=== PATIENT | female | born 1955 | race Caucasian/White ===

== ENCOUNTER 2020-08-04 11:13 | Emergency (ER) | payer OTHER ==
[2020-08-04 13:29] LABS: HEMOGLOBIN 12.8 gm/dl (12.3-15.3); RED BLOOD COUNT 4.23 M/UL (4.00-5.10); WHITE BLOOD COUNT 4.5 K/UL (4.5-11.0)
[2020-08-04 13:58] LABS: BUN/CREATININE RATIO 30 (0-10)
[2020-08-04] MEDS ORDERED: MACROBID 100 M100 M1 PO (14:28)
[2020-08-04] MEDS ORDERED: PREDNISONE 20 M20 MG PO (14:28)
[2020-08-04] MEDS ORDERED: PROAIR HFA8.5 GM INH (14:28)
== END 2020-08-04 15:03 | disposition home or self-care (01) ==
LOC: ER1 11:13
PROVIDERS: Physician Assistant
DX: J40 Bronchitis, not specified as acute or chronic (principal); N39.0 Urinary tract infection, site not specified; I10 Essential (primary) hypertension; I25.2 Old myocardial infarction; Z86.73 Personal history of transient ischemic attack (TIA), and cerebral infarction without residual deficits; Z90.49 Acquired absence of other specified parts of digestive tract; Z90.710 Acquired absence of both cervix and uterus; Z88.0 Allergy status to penicillin; Z88.5 Allergy status to narcotic agent; Z88.6 Allergy status to analgesic agent; Z88.1 Allergy status to other antibiotic agents
CPT/HCPCS: 70450; 71045; 80053; 81001; 82550; 82553; 83690; 83874; 83880; 84484; 85025; 85379; 93005; 94664; 94760; 99285

== ENCOUNTER → 2020-08-12 | Outpatient (CLI) | payer OTHER ==
[~2020-08-12] MED LIST: BACTRIM DS TAB1 EACH PO; MACROBID 100 M100 M1 PO; PREDNISONE 20 M20 MG PO; PROAIR HFA8.5 GM INH; PYRIDIUM200 MG PO
== END ==
LOC: HEART 5 15:27
DX: R00.2 Palpitations (principal)

== ENCOUNTER 2020-11-11 10:21 | Emergency (ER) | payer OTHER ==
[~2020-11-11 10:21] MED LIST changes: -BACTRIM DS TAB1 EACH PO; -PYRIDIUM200 MG PO
[2020-11-11 13:18] LABS: HEMOGLOBIN 12.9 gm/dl (12.3-15.3); RED BLOOD COUNT 4.2 M/UL (4.00-5.10)
[2020-11-11 14:02] LABS: BUN/CREATININE RATIO 14 (0-10)
[2020-11-11] MEDS ORDERED: PYRIDIUM200 MG PO (15:36)
[2020-11-11] MEDS ORDERED: BACTRIM DS TAB1 EACH PO (15:36)
== END 2020-11-11 16:26 | disposition home or self-care (01) ==
LOC: ER1 10:21
PROVIDERS: Nurse Practitioner
DX: M54.6 Pain in thoracic spine (principal); N39.0 Urinary tract infection, site not specified; E78.5 Hyperlipidemia, unspecified; I10 Essential (primary) hypertension; J45.909 Unspecified asthma, uncomplicated; E03.9 Hypothyroidism, unspecified; Z90.49 Acquired absence of other specified parts of digestive tract; Z90.710 Acquired absence of both cervix and uterus; Z88.0 Allergy status to penicillin; Z88.6 Allergy status to analgesic agent; Z88.1 Allergy status to other antibiotic agents; Z79.899 Other long term (current) drug therapy; Z87.891 Personal history of nicotine dependence
CPT/HCPCS: 71045; 72128; 80053; 81001; 82550; 82553; 83735; 83874; 84484; 85025; 87086; 93005; 99284

== ENCOUNTER 2020-12-15 12:49 | Emergency (ER) | payer OTHER ==
[~2020-12-15 12:49] MED LIST changes: +BACTRIM DS TAB1 EACH PO; +PYRIDIUM200 MG PO
[2020-12-15] MEDS ORDERED: CYCLOBENZAPRINE10 MG PO (13:29)
== END 2020-12-15 13:37 | disposition home or self-care (01) ==
LOC: ER1 12:49
DX: S46.911A Strain of unspecified muscle, fascia and tendon at shoulder and upper arm level, right arm, initial encounter (principal); E78.5 Hyperlipidemia, unspecified; I10 Essential (primary) hypertension; Z90.49 Acquired absence of other specified parts of digestive tract; Z90.89 Acquired absence of other organs; Z90.710 Acquired absence of both cervix and uterus; Z79.899 Other long term (current) drug therapy; Z88.0 Allergy status to penicillin; Z88.5 Allergy status to narcotic agent; Z88.1 Allergy status to other antibiotic agents; Z88.6 Allergy status to analgesic agent; X50.9XXA Other and unspecified overexertion or strenuous movements or postures, initial encounter
CPT/HCPCS: 99283

== ENCOUNTER → 2020-12-23 | Outpatient (CLI) | payer OTHER ==
[~2020-12-23] MED LIST changes: +CYCLOBENZAPRINE10 MG PO
== END ==
LOC: HEART 5 09-14 08:30 → ECHO 11:51
DX: R06.00 Dyspnea, unspecified (principal); R07.9 Chest pain, unspecified; I25.2 Old myocardial infarction
CPT/HCPCS: ECHO; 78452; 93017; 93306; A9502; J2785

== ENCOUNTER → 2020-12-29 | Outpatient (CLI) | payer OTHER | LOC: EXRD 15:30 | DX: M25.551 Pain in right hip (principal); M54.5 Low back pain | CPT/HCPCS: 72100; 73502 ==

== ENCOUNTER → 2021-01-21 | Outpatient (CLI) | payer OTHER ==
[2021-01-21 14:53] LABS: HEMOGLOBIN 13.2 gm/dl (12.3-15.3); RED BLOOD COUNT 4.35 M/UL (4.00-5.10); WHITE BLOOD COUNT 4.8 K/UL (4.5-11.0)
[2021-01-21 15:10] LABS: BUN/CREATININE RATIO 18 (0-10)
== END ==
LOC: LAB 14:23
PROVIDERS: Internal Medicine Interventional Cardiology
DX: I10 Essential (primary) hypertension (principal); R07.9 Chest pain, unspecified; F41.9 Anxiety disorder, unspecified; E78.5 Hyperlipidemia, unspecified; R00.2 Palpitations
CPT/HCPCS: 80048; 85025; 85610; 85730; 93005

== ENCOUNTER → 2021-01-22 | Outpatient (CLI) | payer OTHER | LOC: KOH-I 10:07 | DX: M47.26 Other spondylosis with radiculopathy, lumbar region (principal) | CPT/HCPCS: 72148 ==

== ENCOUNTER → 2021-02-08 | Outpatient (CLI) | payer OTHER ==
[~2021-02-08] MED LIST changes: +AMLODIPINE BESY10 MG PO; +ARICEPT10 MG PO; +ARICEPT5 MG PO; +ATORVASTATIN CA40 MG PO; +LEVOTHYROXINE25 MC1 PO; +METHOCARBAMOL500 MG PO; +MYRBETRIQ50 MG PO; +SOLIFENACIN SUC10 MG PO; +VITAMIN D3125 MCG PO
== END ==
LOC: CATH 06:34
DX: I25.118 Atherosclerotic heart disease of native coronary artery with other forms of angina pectoris (principal); I10 Essential (primary) hypertension; E78.5 Hyperlipidemia, unspecified; F41.9 Anxiety disorder, unspecified; E03.9 Hypothyroidism, unspecified; I25.2 Old myocardial infarction; G47.00 Insomnia, unspecified; E55.9 Vitamin D deficiency, unspecified; Z88.0 Allergy status to penicillin; Z88.8 Allergy status to other drugs, medicaments and biological substances; Z79.899 Other long term (current) drug therapy; Z90.49 Acquired absence of other specified parts of digestive tract; Z98.890 Other specified postprocedural states; Z82.49 Family history of ischemic heart disease and other diseases of the circulatory system
CPT/HCPCS: 99152; 99153; C1769; J1644; J2250; J2270; J3010; J7030; Q9967

== ENCOUNTER 2021-04-15 14:30 | Emergency (ER) | payer MEDICARE, OTHER ==
[2021-04-15 15:06] LABS: HEMOGLOBIN 13.6 gm/dl (12.3-15.3); RED BLOOD COUNT 4.49 M/UL (4.00-5.10); WHITE BLOOD COUNT 4.9 K/UL (4.5-11.0)
[2021-04-15 15:54] LABS: BUN/CREATININE RATIO 21 (0-10)
== END 2021-04-15 16:20 | disposition home or self-care (01) ==
LOC: ER1 14:30
PROVIDERS: Physician Assistant
DX: R07.9 Chest pain, unspecified (principal); I10 Essential (primary) hypertension; R06.02 Shortness of breath; Z90.710 Acquired absence of both cervix and uterus; Z90.49 Acquired absence of other specified parts of digestive tract; Z88.5 Allergy status to narcotic agent
CPT/HCPCS: 71045; 80053; 82550; 82553; 83874; 84484; 85025; 93005; 99285